=== PATIENT | male | born 1985 | race Caucasian/White ===

== ENCOUNTER 2020-11-12 17:21 | Emergency (ER) | payer SELFPAY ==
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
[2020-11-12] MEDS ORDERED: Sodium Chloride 0.9% 10 ML Syringe FLUSH PRN (17:49)
[2020-11-12 18:25] LABS: ANION GAP 11.6 mEq/L (7-13); CHLORIDE,CL 107 mmol/L (98-107); SODIUM,NA 144 mmol/L (136-145)
[2020-11-12] MEDS ORDERED: Iopamidol 612 MG/ML 100 ML Bottle IVPUSH ONE (18:32)
--- NOTE | 2020-11-12 19:48 | CT ---
PROCEDURE INFORMATION: Exam: CT Abdomen And Pelvis With Contrast Exam date and time: 11/12/2020 7:09 PM Age: 35 years old Clinical indication: Other: Suspicious for appendicitis; Additional info: Rlq pain with rebound tenderness TECHNIQUE: Imaging protocol: Computed tomography of the abdomen and pelvis with contrast. Radiation optimization: All CT scans at this facility use at least one of these dose optimization techniques: automated exposure control; mA and/or kV adjustment per patient size (includes targeted exams where dose is matched to clinical indication); or iterative reconstruction. Contrast material: [id number]; Contrast volume: 75 ml; Contrast route: INTRAVENOUS (IV); COMPARISON: No relevant prior studies available. FINDINGS: Liver: The liver is normal in architecture, without suspicious abnormality. Gallbladder and bile ducts: The gallbladder is surgically absent. Pancreas: The pancreatic parenchyma is normal in bulk and sharply marginated. Duct is not dilated. No calcifications, masses, or abnormal fluid collections. Spleen: Spleen is normal in size. No mass or fluid collection. Adrenal glands: There are no adrenal masses. Kidneys and ureters: Normal in parenchymal bulk. No hydronephrosis or asymmetric perinephric stranding. No solid masses. No stones. Stomach and bowel: No significant abnormalities of the stomach. There are no dilated or thickened small bowel loops. Gas and stool are seen in the colon to the rectum. No mass. Appendix: There is no evidence for appendicitis. Intraperitoneal space: No ascites. No abscess. No inflammation within the intra-abdominal fat. No pneumoperitoneum. No mass. Vasculature: No aneurysm. Lymph nodes: There are no enlarged celiac, mesenteric, periportal, extraperitoneal or inguinal lymph nodes. Urinary bladder: There is no bladder wall thickening, mass, or calculus. Reproductive: Prostate gland is normal in size. The seminal vesicles are unremarkable. Bones/joints: Age appropriate spondylosis. There are no suspicious lytic or osteosclerotic lesions. There are no vertebral compression fractures. Soft tissues: There is a fat-containing umbilical hernia. IMPRESSION: No acute intra-abdominal disease.
== END 2020-11-12 20:39 | disposition home or self-care (01) ==
LOC: DL.ED 17:21
DX: R10.31 Right lower quadrant pain (principal); Z91.018 Allergy to other foods; Z72.0 Tobacco use
CPT/HCPCS: 36415; 74177; 80053; 82150; 85025; 99283; 99284-25; Q9967

== ENCOUNTER 2020-11-25 15:54 | Emergency (ER) | payer SELFPAY ==
[2020-11-28 11:46] LABS: C.TRACHOMATIS BY TMA Negative (Negative); N.GONORRHOEAE BY TMA Negative (Negative)
== END 2020-11-25 21:20 | disposition left against medical advice (07) ==
LOC: DL.ED 15:54
DX: Z53.21 Procedure and treatment not carried out due to patient leaving prior to being seen by health care provider (principal)
CPT/HCPCS: 81001; 87491; 87591

== ENCOUNTER 2020-12-23 20:56 | Emergency (ER) | payer OTHER ==
--- NOTE | 2020-12-23 22:11 | EDM.PDOC ---
ED HPI GENERAL MEDICAL PROBLEM - General Chief Complaint: Back Pain or Injury Stated Complaint: FELL ON YOUR BACK AT WORK Time Seen by Provider: 12/23/20 22:11 Source of Information: Reports: Patient, RN, RN Notes Reviewed History Limitations: Reports: No Limitations - History of Present Illness INITIAL COMMENTS - FREE TEXT/NARRATIVE: Patient is a 35-year-old male who presents to ER with complaint of back pain. States he was at work at [employer] when he slipped on grease in the kitchen and fell twisting his back on the way down. He states this happened about 2100 tonight. Has a history of numbness down the right leg from time to time, and no more numbness or tingling than usual today. States he does have some tingling to the left leg. Denies saddle anesthesia, incontinence of bowel or bladder. Rates pain a 7/10 with no movement and and 9/10 with movement. Onset: Today, Sudden Lower Back Pain Score (Numeric/FACES): 9 - Related Data Allergies Allergy/AdvReac Type Severity Reaction Status Date / Time chocolate flavor Allergy Cannot Verified 11/25/20 16:25 Remember Home Meds: Home Meds . [No Known Home Meds] 11/12/20 [History] Past Medical History HEENT History: Reports: None Cardiovascular History: Reports: None Respiratory History: Reports: None Gastrointestinal History: Reports: GERD Musculoskeletal History: Reports: None Neurological History: Reports: Seizure Psychiatric History: Reports: ADHD, Addiction, Bipolar, Depression, Schizophrenia Endocrine/Metabolic History: Reports: None Hematologic History: Reports: None Immunologic History: Reports: None Oncologic (Cancer) History: Reports: None Dermatologic History: Reports: None - Infectious Disease History Infectious Disease History: Reports: None - Past Surgical History Head Surgeries/Procedures: Reports: None Social & Family History - Family History Family Medical History: No Pertinent Family History - Tobacco Use Tobacco Use Status *Q: Current Every Day Tobacco User Years of Tobacco use: 1 Packs/Tins Daily: 0.2 - Caffeine Use Caffeine Use: Reports: Energy Drinks - Recreational Drug Use Recreational Drug Use: No - Living Situation & Occupation Living situation: Reports: Single Occupation: Other ED ROS GENERAL - Review of Systems Review Of Systems: Comprehensive ROS is negative, except as noted in HPI. ED EXAM,LOWER BACK PAIN/INJURY - Physical Exam Exam: See Below Exam Limited By: No Limitations General Appearance: Alert, WD/WN, No Apparent Distress Eye Exam: Bilateral Eye: EOMI, Normal Inspection Ears: Normal External Exam, Hearing Grossly Normal Nose: Normal Inspection Throat/Mouth: Normal Inspection, Normal Voice, No Airway Compromise Head: Atraumatic, Normocephalic Neck: Normal Inspection, Supple, Non-Tender, Full Range of Motion Respiratory/Chest: No Respiratory Distress, Lungs Clear, Normal Breath Sounds, No Accessory Muscle Use, Chest Non-Tender Cardiovascular: Normal Peripheral Pulses, Regular Rate, Rhythm, No Edema, No Gallop, No JVD, No Murmur, No Rub GI/Abdominal: Normal Bowel Sounds, Soft, Non-Tender (Male) Exam: Deferred Rectal (Males) Exam: Deferred Back Exam: Normal Inspection, Decreased Range of Motion, Muscle Spasm Extremities: Normal Inspection, Normal Range of Motion, Non-Tender, No Pedal Edema, Normal Capillary Refill Neurological: Alert, Normal Mood/Affect, No Motor/Sensory Deficits, Oriented x 3 Psychiatric: Normal Affect, Normal Mood Skin Exam: Warm, Dry, Intact, Normal Color, No Rash Lymphatic: No Adenopathy Course - Vital Signs Last Recorded V/S: Last Vital Signs Temp 98.3 F 12/23/20 21:49 Pulse 84 12/23/20 21:49 Resp 18 12/23/20 21:49 BP 107/70 12/23/20 21:49 Pulse Ox 98 12/23/20 21:49 - Orders/Labs/Meds Meds: Medications Discontinued Medications Generic Name Dose Route Start Last Admin Trade Name Breana PRN Reason Stop Dose Admin Dexamethasone 8 mg 12/23/20 22:26 12/23/20 23:03 Dexamethasone 4 Mg/Ml Sdv IM 12/23/20 22:27 8 mg ONETIME ONE Administration Ketorolac Tromethamine 30 mg 12/23/20 22:26 12/23/20 23:04 Ketorolac 30 Mg/Ml Sdv IM 12/23/20 22:27 30 mg ONETIME ONE Administration Orphenadrine Citrate 60 mg 12/23/20 22:26 12/23/20 23:04 Orphenadrine 60 Mg/2 Ml Inj IM 12/23/20 22:27 60 mg ONETIME ONE Administration - Radiology Interpretation Free Text/Narrative:: Lumbar Spine xray: PROCEDURE INFORMATION: Exam: XR Lumbosacral Spine Exam date and time: 12/23/2020 11:17 PM Age: 35 years old Clinical indication: Other: Pain; Additional info: Slipped on grease, twisted and fell, low back pain TECHNIQUE: Imaging protocol: XR of the lumbosacral spine. Views: 2 or 3 views. COMPARISON: CT Abdomen Pelvis w Cont 11/12/2020 7:09 PM FINDINGS: Bones/joints: Normal. No acute fracture. Normal alignment. Soft tissues: Unremarkable. IMPRESSION: No acute findings. Thank you for allowing us to participate in the care of your patient. Dictated and Authenticated by: Randi Hammonds MD 12/24/2020 12:43 AM Central Time ([place] & [place]) See rad report - Re-Assessments/Exams Free Text/Narrative Re-Assessment/Exam: 12/23/20 23:56 Patient does live in a custodial house, wears an ankle bracelet. States he needs to be back to the custodial house and to plug in his ankle bracelet or his botanical technical officer will be upset with him. Explained to the patient that I was not seeing anything on the x-rays, but we would be waiting for some time for the official read from radiology. Did take down the patient's cell phone number told him we would call him if there was anything abnormal on the x-rays. Encouraged to take medications as prescribed. May alternate heat and ice. 12/23/20 23:58 Does state improvement in pain since medication injections. Departure - Departure Time of Disposition: 23:57 Disposition: Home, Self-Care 01 Condition: Good Clinical Impression: Lumbar radiculopathy Low back pain Qualifiers: Chronicity: acute Back pain laterality: bilateral Sciatica presence: with sciatica Sciatica laterality: bilateral sciatica Qualified Code(s): M54.42 - Lumbago with sciatica, left side - Discharge Information *PRESCRIPTION DRUG MONITORING PROGRAM REVIEWED*: No *COPY OF PRESCRIPTION DRUG MONITORING REPORT IN PATIENT SUZY: No Instructions: Radicular Pain, Back Injury Prevention, [id number], Muscle Strain, [id number] Referrals: PCP,None [Primary Care Provider] - Forms: ED Department Discharge Additional Instructions: Alternate heat and ice to the back Rest Return to the ER with any worsening of problems Follow-up with your primary care provider in the clinic May follow-up with physical therapy at the location of your preference Sepsis Event Note (ED) - Evaluation Sepsis Screening Result: No Definite Risk
[2020-12-23] MEDS ORDERED: Dexamethasone 4 MG/ML SDV IM ONE (22:26)
[2020-12-23] MEDS ORDERED: Orphenadrine 60 MG/2 ML Inj IM ONE (22:26)
[2020-12-23] MEDS ORDERED: Ketorolac 30 MG/ML SDV IM ONE (22:26)
--- NOTE | 2020-12-24 00:43 | CR ---
PROCEDURE INFORMATION: Exam: XR Lumbosacral Spine Exam date and time: 12/23/2020 11:17 PM Age: 35 years old Clinical indication: Other: Pain; Additional info: Slipped on grease, twisted and fell, low back pain TECHNIQUE: Imaging protocol: XR of the lumbosacral spine. Views: 2 or 3 views. COMPARISON: CT Abdomen Pelvis w Cont 11/12/2020 7:09 PM FINDINGS: Bones/joints: Normal. No acute fracture. Normal alignment. Soft tissues: Unremarkable. IMPRESSION: No acute findings.
== END 2020-12-24 00:05 | disposition home or self-care (01) ==
LOC: DL.ED 20:56
DX: M54.16 Radiculopathy, lumbar region (principal); M54.42 Lumbago with sciatica, left side; Z72.0 Tobacco use; Z91.018 Allergy to other foods; W01.0XXA Fall on same level from slipping, tripping and stumbling without subsequent striking against object, initial encounter; X50.1XXA Overexertion from prolonged static or awkward postures, initial encounter
CPT/HCPCS: 72100; 96372; 99283; 99283-25; J1100; J1885; J2360

== ENCOUNTER 2021-01-07 01:51 | Emergency (ER) | payer SELFPAY ==
[2021-01-07] MEDS ORDERED: Ketorolac 30 MG/ML SDV IM ONE (02:15)
[2021-01-07] MEDS ORDERED: Orphenadrine 60 MG/2 ML Inj IM ONE (02:15)
--- NOTE | 2021-01-07 02:42 | EDM.PDOC ---
ED HPI GENERAL MEDICAL PROBLEM - General Chief Complaint: Back Pain or Injury Stated Complaint: BACK SPASMS, EXTREME PAIN Time Seen by Provider: 01/07/21 02:15 Source of Information: Reports: Patient, RN, RN Notes Reviewed History Limitations: Reports: No Limitations - History of Present Illness INITIAL COMMENTS - FREE TEXT/NARRATIVE: Patient is a 35-year-old male who presents to ER with complaint of midthoracic back pain. On December 252020, patient slipped on grease and fell on his back at his workplace. Patient was evaluated in the ER at that time. Lumbar spine x-rays were completed as the pain was in the low back. Patient states he did follow-up with his primary care provider who prescribed more cyclobenzaprine as well as dexamethasone. Patient is off of work currently for 3 weeks and is to be reevaluated in the clinic on January 23. Patient states he did make an appointment for next week with his primary care provider due to the low back pain "creeping" up the spine. He states today he was doing just fine when he bent over to pick something up from a picnic table and his back began to spasm. Complains of pain in the mid/thoracic portion of the back. He states it did release for short period of time and began to spasm again. Patient states last dose of cyclobenzaprine was at noon today. States he also took his dexamethasone today at noon. Onset: Today, Sudden Back Pain Score (Numeric/FACES): 10 - Related Data Allergies Allergy/AdvReac Type Severity Reaction Status Date / Time chocolate flavor Allergy Cannot Verified 11/25/20 16:25 Remember Home Meds: Home Meds Cyclobenzaprine [Flexeril] 10 mg PO TID 01/07/21 [History] dexAMETHasone [Dexamethasone] 2 mg PO BID 01/07/21 [History] Past Medical History HEENT History: Reports: None Cardiovascular History: Reports: None Respiratory History: Reports: None Gastrointestinal History: Reports: GERD Musculoskeletal History: Reports: None Neurological History: Reports: Seizure Psychiatric History: Reports: ADHD, Addiction, Bipolar, Depression, Schizophrenia Endocrine/Metabolic History: Reports: None Hematologic History: Reports: None Immunologic History: Reports: None Oncologic (Cancer) History: Reports: None Dermatologic History: Reports: None - Infectious Disease History Infectious Disease History: Reports: None - Past Surgical History Head Surgeries/Procedures: Reports: None GI Surgical History: Reports: Cholecystectomy, EGD Social & Family History - Family History Family Medical History: No Pertinent Family History - Tobacco Use Tobacco Use Status *Q: Current Every Day Tobacco User Years of Tobacco use: 15 Packs/Tins Daily: 0.3 Used Tobacco, but Quit: No Second Hand Smoke Exposure: Yes - Caffeine Use Caffeine Use: Reports: Coffee, Energy Drinks, Soda - Recreational Drug Use Recreational Drug Use: No - Living Situation & Occupation Living situation: Reports: Single Occupation: Other ED ROS GENERAL - Review of Systems Review Of Systems: Comprehensive ROS is negative, except as noted in HPI. ED EXAM, UPPER BACK/NECK PAIN - Physical Exam Exam: See Below Exam Limited By: No Limitations General Appearance: Alert, WD/WN, Moderate Distress Eye Exam: Bilateral Eye: EOMI, Normal Inspection Ears Exam: Normal External Exam, Hearing Grossly Normal Nose Exam: Normal Inspection Throat/Mouth Exam: Normal Inspection, Normal Voice, No Airway Compromise Head Exam: Atraumatic, Normocephalic Neck Exam: Non-Tender, Full Range of Motion, Normal Alignment, Normal Inspection Nexus Criteria: No: Posterior, Midline Cervical Tenderness, Evidence of Intoxication, Altered Level of Consciousness, Focal Neurological Deficit, Painful Distraction Injuries Cardiovascular/Respiratory: Regular Rate, Rhythm, No M/R/G, Normal Peripheral Pulses, No JVD, Normal Breath Sounds, No Respiratory Distress GI/Abdominal: Normal Bowel Sounds, Soft, Non-Tender (Male) Exam: Deferred Rectal (Males) Exam: Deferred Back Exam: Muscle Spasm, Vertebral Tenderness (Thoracic) Extremities: Normal Inspection, Non-Tender, No Pedal Edema, Normal Capillary Refill, Limited Range of Motion (Lower extremities bilaterally) Neurologic: No Motor/Sensory Deficits, Alert, Normal Mood/Affect, Oriented x 3 Psychiatric: Normal Affect, Normal Mood, Anxious Skin Exam: Normal Color, Warm/Dry Lymphatic: No Adenopathy Course - Vital Signs Last Recorded V/S: Last Vital Signs Temp 97.0 F 01/07/21 02:09 Pulse 105 H 01/07/21 02:09 Resp 18 01/07/21 02:09 BP 125/72 01/07/21 02:09 Pulse Ox 97 01/07/21 02:09 - Orders/Labs/Meds Meds: Medications Discontinued Medications Generic Name Dose Route Start Last Admin Trade Name Freq PRN Reason Stop Dose Admin Ketorolac Tromethamine 30 mg 01/07/21 02:15 01/07/21 02:39 Ketorolac 30 Mg/Ml Sdv IM 01/07/21 02:16 30 mg ONETIME ONE Administration Orphenadrine Citrate 60 mg 01/07/21 02:15 01/07/21 02:41 Orphenadrine 60 Mg/2 Ml Inj IM 01/07/21 02:16 60 mg ONETIME ONE Administration - Radiology Interpretation Free Text/Narrative:: Rib x-ray: PROCEDURE INFORMATION: Exam: XR Right Ribs with PA Chest Exam date and time: 01/07/2021 3:05 AM Age: 35 years old Clinical indication: Other: Fell in December, now post. Rib pain--no new injury; Ad ditional info: Mid back pain, TECHNIQUE: Imaging protocol: XR Right ribs with PA chest. Views: 3 views COMPARISON: CR Thoracolumbar 2V 01/07/2021 3:01 AM FINDINGS: Lungs: Unremarkable. No consolidation. Pleural spaces: Unremarkable. No pleural effusion. No pneumothorax. Heart/Mediastinum: Unremarkable. No cardiomegaly. Bones/joints: Unremarkable. Organs: There has been a cholecystectomy. IMPRESSION: No acute disease. Thank you for allowing us to participate in the care of your patient. Dictated and Authenticated by: Noah Newman DO 01/07/2021 3:46 AM Central Time ([place] & [place]) Thoracolumbar x-ray: PROCEDURE INFORMATION: Exam: XR Thoracolumbar Spine Exam date and time: 01/07/2021 3:01 AM Age: 35 years old Clinical indication: Other: Fall mid december--now pain "creeping up back"; Additional info: Mid back pain, TECHNIQUE: Imaging protocol: XR of the thoracolumbar spine. Views: 2 views. COMPARISON: CR Lumbar Spine 2 or 3V 12/23/2020 11:17 PM FINDINGS: Bones/joints: There is normal vertebral body alignment. There are normal vertebral body heights. Disc spaces are symmetric and maintained. The pedicles are intact. No fracture. Soft tissues: Unremarkable. Intraperitoneal space: There has been a cholecystectomy. IMPRESSION: No fracture. Thank you for allowing us to participate in the care of your patient. Dictated and Authenticated by: Noah Newman DO 01/07/2021 3:45 AM Central Time ([place] & [place]) See radiologist report - Re-Assessments/Exams Free Text/Narrative Re-Assessment/Exam: 01/07/21 03:53 Patient states pain improved at this time. States spasms come and go. Patient does state he has an appointment with his primary care provider on Friday. Departure - Departure Time of Disposition: 03:53 Disposition: Home, Self-Care 01 Condition: Good Clinical Impression: Muscle spasm - Discharge Information *PRESCRIPTION DRUG MONITORING PROGRAM REVIEWED*: No *COPY OF PRESCRIPTION DRUG MONITORING REPORT IN PATIENT SUZY: No Instructions: Muscle Cramps and Spasms, [id number], Muscle Strain, Easy-to- Read, Back Injury Prevention, [id number] Forms: ED Department Discharge Additional Instructions: Continue taking your muscle relaxants as prescribed May use Tylenol and/or ibuprofen as directed for pain Follow-up with your primary care provider next week Rest Use a heating pad on the back as tolerated Sepsis Event Note (ED) - Evaluation Sepsis Screening Result: No Definite Risk - Focused Exam Vital Signs: Vital Signs Temp Pulse Resp BP Pulse Ox 01/07/21 02:09 97.0 F 105 H 18 125/72 97
--- NOTE | 2021-01-07 03:46 | CR ---
PROCEDURE INFORMATION: Exam: XR Thoracolumbar Spine Exam date and time: 01/07/2021 3:01 AM Age: 35 years old Clinical indication: Other: Fall mid december--now pain "creeping up back"; Additional info: Mid back pain, TECHNIQUE: Imaging protocol: XR of the thoracolumbar spine. Views: 2 views. COMPARISON: CR Lumbar Spine 2 or 3V 12/23/2020 11:17 PM FINDINGS: Bones/joints: There is normal vertebral body alignment. There are normal vertebral body heights. Disc spaces are symmetric and maintained. The pedicles are intact. No fracture. Soft tissues: Unremarkable. Intraperitoneal space: There has been a cholecystectomy. IMPRESSION: No fracture.
--- NOTE | 2021-01-07 03:47 | CR ---
PROCEDURE INFORMATION: Exam: XR Right Ribs with PA Chest Exam date and time: 01/07/2021 3:05 AM Age: 35 years old Clinical indication: Other: Fell in December, now post. Rib pain--no new injury; Additional info: Mid back pain, TECHNIQUE: Imaging protocol: XR Right ribs with PA chest. Views: 3 views COMPARISON: CR Thoracolumbar 2V 01/07/2021 3:01 AM FINDINGS: Lungs: Unremarkable. No consolidation. Pleural spaces: Unremarkable. No pleural effusion. No pneumothorax. Heart/Mediastinum: Unremarkable. No cardiomegaly. Bones/joints: Unremarkable. Organs: There has been a cholecystectomy. IMPRESSION: No acute disease.
== END 2021-01-07 04:14 | disposition home or self-care (01) ==
LOC: DL.ED 01:51
DX: M62.838 Other muscle spasm (principal); Z72.0 Tobacco use; Z91.018 Allergy to other foods
CPT/HCPCS: 71101; 72080; 96372; 99283; J1885; J2360

== ENCOUNTER 2021-02-10 12:51 | Emergency (ER) | payer MEDICAID, OTHER ==
[2021-02-10] MEDS ORDERED: Ketorolac 30 MG/ML SDV IM ONE (13:58)
[2021-02-10] MEDS ORDERED: Orphenadrine 60 MG/2 ML Inj IM ONE (13:58)
--- NOTE | 2021-02-10 14:01 | EDM.PDOC ---
Scribed by Shadia Kan 02/10/21 1401 for Jovanny Beltran MD ED HPI GENERAL MEDICAL PROBLEM - General Chief Complaint: Back Pain or Injury Stated Complaint: BACK SPASM Time Seen by Provider: 02/10/21 13:56 Source of Information: Reports: Patient, RN, RN Notes Reviewed History Limitations: Reports: No Limitations - History of Present Illness INITIAL COMMENTS - FREE TEXT/NARRATIVE: Patient presents to ED by POV stating that he was injured at work on December 23, slipped and fell. He has been having back spasms since. Patient states went to life something this AM, went to the floor from the pain and wasn't able to get up for a while. He states has medication for this, is not able to take when needs. He has to take the meds when scheduled, is scheduled 4 times a day. Patient states he was sleeping at 1100 when med due, missed it and could not take at 1230, rates his pain 5/[address] ([facility]) Onset: Gradual Duration: Getting Worse Location: Reports: Back Quality: Reports: Ache Severity: Severe Improves with: Reports: None Worsens with: Reports: None Associated Symptoms: Reports: No Other Symptoms Back Pain Score (Numeric/FACES): 5 - Related Data Allergies Allergy/AdvReac Type Severity Reaction Status Date / Time chocolate flavor Allergy Cannot Verified 02/10/21 13:28 Remember Past Medical History HEENT History: Reports: None Cardiovascular History: Reports: None Respiratory History: Reports: None Gastrointestinal History: Reports: GERD Genitourinary History: Reports: None Musculoskeletal History: Reports: None Neurological History: Reports: Seizure Psychiatric History: Reports: ADHD, Addiction, Bipolar, Depression, S chizophrenia Endocrine/Metabolic History: Reports: None Hematologic History: Reports: None Immunologic History: Reports: None Oncologic (Cancer) History: Reports: None Dermatologic History: Reports: None - Infectious Disease History Infectious Disease History: Reports: None - Past Surgical History Head Surgeries/Procedures: Reports: None GI Surgical History: Reports: Cholecystectomy, EGD Social & Family History - Family History Family Medical History: No Pertinent Family History - Tobacco Use Tobacco Use Status *Q: Current Every Day Tobacco User Years of Tobacco use: 19 Packs/Tins Daily: 0.5 Second Hand Smoke Exposure: No - Caffeine Use Caffeine Use: Reports: Coffee - Recreational Drug Use Recreational Drug Use: No - Living Situation & Occupation Living situation: Reports: Single Occupation: Other ED ROS GENERAL - Review of Systems Review Of Systems: Comprehensive ROS is negative, except as noted in HPI. ED EXAM,LOWER BACK PAIN/INJURY - Physical Exam Exam: See Below Exam Limited By: No Limitations General Appearance: Alert, WD/WN, No Apparent Distress Throat/Mouth: Normal Voice, No Airway Compromise Head: Atraumatic, Normocephalic Neck: Normal Inspection, Non-Tender, Full Range of Motion Respiratory/Chest: No Respiratory Distress, Lungs Clear Cardiovascular: Normal Peripheral Pulses GI/Abdominal: Normal Bowel Sounds, Soft, Non-Tender Back Exam: Decreased Range of Motion (Lumbar due to pain), Muscle Spasm (Lumbar region, Rt>Left), Paraspinal Tenderness (Lumbar). No: Vertebral Tenderness Extremities: Normal Inspection, Normal Range of Motion, Non-Tender, No Pedal Edema, Normal Capillary Refill Neurological: Alert, Normal Dorsiflexion, Normal Plantar Flexion, Normal Gait, No Motor/Sensory Deficits, Oriented x 3 Psychiatric: Normal Affect, Normal Mood Skin Exam: Warm, Dry, Intact, Normal Color, No Rash Course - Vital Signs Last Recorded V/S: Last Vital Signs Temp 96.8 F L 02/10/21 13:21 Pulse 92 02/10/21 13:21 Resp 16 02/10/21 13:21 BP 105/72 02/10/21 13:21 Pulse Ox 97 02/10/21 13:21 - Orders/Labs/Meds Orders: Active Orders 24 hr Category Date Time Status Ketorolac [Toradol] Med 02/10/21 13:58 Once 60 mg IM ONETIME ONE Orphenadrine [Norflex] Med 02/10/21 13:58 Once 60 mg IM ONETIME ONE Departure - Departure Time of Disposition: 14:00 Disposition: Home, Self-Care 01 Condition: Good Clinical Impression: Lumbar paraspinal muscle spasm - Discharge Information *PRESCRIPTION DRUG MONITORING PROGRAM REVIEWED*: Not Applicable *COPY OF PRESCRIPTION DRUG MONITORING REPORT IN PATIENT SUZY: Not Applicable Instructions: Muscle Cramps and Spasms, [id number], Chronic Back Pain Forms: ED Department Discharge Additional Instructions: Continue Methocarbamol as prescribed. Follow up in clinic as needed. Sepsis Event Note (ED) - Evaluation Sepsis Screening Result: No Definite Risk - Focused Exam Vital Signs: Vital Signs Temp Pulse Resp BP Pulse Ox 02/10/21 13:21 96.8 F L 92 16 105/72 97 - My Orders Last 24 Hours: My Active Orders 02/10/21 13:58 Ketorolac [Toradol] 60 mg IM ONETIME ONE Orphenadrine [Norflex] 60 mg IM ONETIME ONE - Assessment/Plan Last 24 Hours: My Active Orders 02/10/21 13:58 Ketorolac [Toradol] 60 mg IM ONETIME ONE Orphenadrine [Norflex] 60 mg IM ONETIME ONE I have read and agree with the documentation that has been completed regarding this visit. By signing this record, I attest that the documentation was completed in my physical presence and is an accurate record of the encounter.
== END 2021-02-10 15:04 | disposition home or self-care (01) ==
LOC: DL.ED 12:51
DX: M62.830 Muscle spasm of back (principal); Z91.018 Allergy to other foods; Z72.0 Tobacco use
CPT/HCPCS: 96372; 99283

== ENCOUNTER 2021-03-04 23:02 | Emergency (ER) | payer MEDICAID ==
[2021-03-04] MEDS ORDERED: predniSONE 20 MG Tab PO ONE (23:54)
--- NOTE | 2021-03-05 | EDM.PDOC ---
ED HPI GENERAL MEDICAL PROBLEM - General Chief Complaint: Respiratory Problem Stated Complaint: COUGHING,SWEATING,DIARRHEA Time Seen by Provider: 03/04/21 23:45 Source of Information: Reports: Patient, RN Notes Reviewed - History of Present Illness INITIAL COMMENTS - FREE TEXT/NARRATIVE: Pt is here for cough and diarrhea for the last few days. 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 He had a COVID test 2 days ago which was negative. He notes the cough is the worst symptom and makes his headache worse. No fevers or chills. He notes his entire body aches. He has not tried anything for his symptoms, but notes being outside makes his cough better. - Related Data Allergies Allergy/AdvReac Type Severity Reaction Status Date / Time chocolate flavor Allergy Cannot Verified 02/10/21 13:28 Remember Past Medical History - Past Health History Medical/Surgical History: Denies Medical/Surgical History HEENT History: Reports: None Cardiovascular History: Reports: None Respiratory History: Reports: None Gastrointestinal History: Reports: GERD Genitourinary History: Reports: None Musculoskeletal History: Reports: None Neurological History: Reports: Seizure Psychiatric History: Reports: ADHD, Addiction, Bipolar, Depression, Schizoph mckenna Endocrine/Metabolic History: Reports: None Hematologic History: Reports: None Immunologic History: Reports: None Oncologic (Cancer) History: Reports: None Dermatologic History: Reports: None - Infectious Disease History Infectious Disease History: Reports: None - Past Surgical History Head Surgeries/Procedures: Reports: None GI Surgical History: Reports: Cholecystectomy, EGD Social & Family History - Family History Family Medical History: No Pertinent Family History - Tobacco Use Tobacco Use Status *Q: Light Tobacco User Years of Tobacco use: 20 Packs/Tins Daily: 0.4 - Caffeine Use Caffeine Use: Reports: Coffee - Living Situation & Occupation Living situation: Reports: Single Occupation: Other ED ROS GENERAL - Review of Systems Review Of Systems: Comprehensive ROS is negative, except as noted in HPI. ED EXAM, GENERAL - Physical Exam Exam: See Below Exam Limited By: No Limitations General Appearance: Alert, WD/WN, No Apparent Distress Eye Exam: Bilateral Eye: Normal Inspection Throat/Mouth: Normal Inspection, Normal Voice, No Airway Compromise Head: Atraumatic, Normocephalic Neck: Supple, Non-Tender Respiratory/Chest: No Respiratory Distress, No Accessory Muscle Use, Wheezing. No: Decreased Breath Sounds, Crackles, Rales Cardiovascular: Normal Peripheral Pulses, Regular Rate, Rhythm, No Murmur GI/Abdominal: Soft, Non-Tender. No: Guarding, Rebound (Male) Exam: Deferred Rectal (Males) Exam: Deferred Back Exam: Normal Inspection, Full Range of Motion Extremities: Normal Inspection, Normal Range of Motion, No Pedal Edema Neurological: Alert, Oriented, Normal Cognition, No Motor/Sensory Deficits Psychiatric: Normal Affect, Normal Mood Skin Exam: Warm, Dry, Intact, Normal Color, No Rash Lymphatic: No Adenopathy Course - Vital Signs Last Recorded V/S: Last Vital Signs Temp 98.6 F 03/04/21 23:21 Pulse 109 H 03/04/21 23:21 Resp 20 03/04/21 23:21 BP 129/92 H 03/04/21 23:21 Pulse Ox 98 03/04/21 23:21 - Orders/Labs/Meds Orders: Active Orders 24 hr Category Date Time Status Maldonado [CORONAVIRUS COVID-19 INEZ] [MOLEC] Stat Lab 03/05/21 00:12 Ordered Meds: Medications Discontinued Medications Generic Name Dose Route Start Last Admin Trade Name Freq PRN Reason Stop Dose Admin Prednisone 20 mg 03/04/21 23:54 Prednisone 20 Mg Tab PO 03/04/21 23:55 ONETIME ONE - Re-Assessments/Exams Free Text/Narrative Re-Assessment/Exam: COVID was negative. Most likely another viral etiology for his symptoms. Discussed treatment options. Will treat with prednisone burst, first dose given here. 03/05/21 00:12 Departure - Departure Time of Disposition: 00:20 Disposition: Home, Self-Care 01 Condition: Fair Clinical Impression: Bronchitis - Discharge Information *PRESCRIPTION DRUG MONITORING PROGRAM REVIEWED*: Not Applicable *COPY OF PRESCRIPTION DRUG MONITORING REPORT IN PATIENT SUZY: Not Applicable Instructions: Acute Bronchitis, Adult, [id number] Forms: ED Department Discharge Additional Instructions: Prednisone 20 mg daily for 4 additional days Over the counter medications as needed for symptom relief Follow up with primary care provider in 5-7 days. Sepsis Event Note (ED) - Evaluation Sepsis Screening Result: No Definite Risk - Focused Exam Vital Signs: Vital Signs Temp Pulse Resp BP Pulse Ox 03/04/21 23:21 98.6 F 109 H 20 129/92 H 98 - My Orders Last 24 Hours: My Active Orders 03/05/21 00:12 Maldonado [CORONAVIRUS COVID-19 INEZ] [MOLEC] Stat - Assessment/Plan Last 24 Hours: My Active Orders 03/05/21 00:12 Maldonado [CORONAVIRUS COVID-19 INEZ] [MOLEC] Stat
== END 2021-03-05 00:22 | disposition home or self-care (01) ==
LOC: DL.ED 23:02
DX: J40 Bronchitis, not specified as acute or chronic (principal); Z91.018 Allergy to other foods; Z72.0 Tobacco use; Z20.822 Contact with and (suspected) exposure to COVID-19
CPT/HCPCS: 87635; 99284; J7512; U0002

== ENCOUNTER 2021-05-11 01:47 | Emergency (ER) | payer MEDICARE, MEDICAID ==
--- NOTE | 2021-05-11 02:08 | EDM.PDOC ---
ED HPI GENERAL MEDICAL PROBLEM - General Stated Complaint: HEAD ACHE, WATER IN LEGS, DIZZYNESS, HEART FLUTTER Time Seen by Provider: 05/11/21 02:10 Source of Information: Reports: Patient, RN History Limitations: Reports: No Limitations - History of Present Illness INITIAL COMMENTS - FREE TEXT/NARRATIVE: ED with c/o swelling lower extremeties, currently on lasix for past week. tonight pain in right leg intermittent. No SOB No chest pain or cough. No sore throat or ear pain. Generalized headache today. Admits remote hx of meth use, none in past 2 years, denied ETOH also in past 2 years. Smoker. - Related Data Allergies Allergy/AdvReac Type Severity Reaction Status Date / Time chocolate flavor Allergy Diarrhea Verified 05/11/21 02:17 Home Meds: Home Meds Furosemide [Lasix] 20 mg PO BID 05/11/21 [History] Mirtazapine [Remeron] 30 mg PO DAILY 05/11/21 [History] cloNIDine HCL [Clonidine HCl] 0.2 mg PO DAILY 05/11/21 [History] Past Medical History - Past Health History Medical/Surgical History: Denies Medical/Surgical History HEENT History: Reports: None Cardiovascular History: Reports: None Respiratory History: Reports: None Gastrointestinal History: Reports: GERD Genitourinary History: Reports: None Musculoskeletal History: Reports: None Neurological History: Reports: Seizure Psychiatric History: Reports: ADHD, Addiction, Bipolar, Depression, Schizophrenia Endocrine/Metabolic History: Reports: None Hematologic History: Reports: None Immunologic History: Reports: None Oncologic (Cancer) History: Reports: None Dermatologic History: Reports: None - Infectious Disease History Infectious Disease History: Reports: None - Past Surgical History Head Surgeries/Procedures: Reports: None GI Surgical History: Reports: Cholecystectomy, EGD Social & Family History - Family History Family Medical History: No Pertinent Family History - Caffeine Use Caffeine Use: Reports: Coffee - Living Situation & Occupation Living situation: Reports: Single Occupation: Other ED ROS GENERAL - Review of Systems Review Of Systems: Comprehensive ROS is negative, except as noted in HPI. ED EXAM, GENERAL - Physical Exam Exam: See Below Exam Limited By: No Limitations General Appearance: Alert, Anxious Eye Exam: Bilateral Eye: EOMI Ears: Normal External Exam, Hearing Grossly Normal Nose: Normal Inspection Throat/Mouth: Normal Inspection Head: Atraumatic, Normocephalic Neck: Normal Inspection Respiratory/Chest: No Respiratory Distress, Lungs Clear, Normal Breath Sounds Cardiovascular: Regular Rate, Rhythm, No Edema GI/Abdominal: Normal Bowel Sounds, Soft, Non-Tender Back Exam: Full Range of Motion Extremities: Normal Range of Motion, Pedal Edema (1+) Neurological: Alert, Oriented, Normal Cognition Psychiatric: Anxious Skin Exam: Warm, Dry, Intact, Normal Color #1 Interpretation EKG Date: 05/11/21 Time: 02:02 Rhythm: NSR [place]: Normal P-Wave: Present QRS: Normal ST-T: Normal Comparison: NA - No Prior EKG Course - Vital Signs Last Recorded V/S: Last Vital Signs Temp 99.3 F 05/11/21 02:19 Pulse 86 05/11/21 03:23 Resp 16 05/11/21 03:23 BP 115/74 05/11/21 03:23 Pulse Ox 94 L 05/11/21 03:23 - Orders/Labs/Meds Orders: Active Orders 24 hr Category Date Time Status CXR [Chest 1V Frontal] [CR] Urgent Exams 05/11/21 03:08 Taken Labs: Laboratory Tests 05/11/21 05/11/21 05/11/21 Range/Units 02:14 02:14 02:14 WBC 6.8 (5.0-10.0) 10^3/uL RBC 4.75 (4.6-6.2) 10^6/uL Hgb 14.5 (14.0-18.0) g/dL Hct 42.9 (40.0-54.0) % MCV 90.3 (80-100) fL MCH 30.5 (27.0-34.0) pg MCHC 33.8 (33.0-35.0) g/dL Plt Count 330 (150-450) 10^3/uL Neut % (Auto) 53.0 (42.2-75.2) % Lymph % (Auto) 33.0 (20.5-50.1) % [place] % (Auto) 11.5 H (2-8) % Eos % (Auto) 1.9 (1.0-3.0) % Baso % (Auto) 0.6 (0.0-1.0) % D-Dimer, Quantitative 168 (0-400) ng/mL Sodium 141 (136-145) mmol/L Potassium 4.0 (3.5-5.1) mmol/L Chloride 103 (98-107) mmol/L Carbon Dioxide 28 (21-32) mmol/L Anion Gap 14.0 H (7-13) mEq/L BUN 18 (7-18) mg/dL Creatinine 0.99 (0.70-1.30) mg/dL Est Cr Clr Drug Dosing 104.15 mL/min Estimated GFR (MDRD) > 60 BUN/Creatinine Ratio 18.2 (No establ ref range) Glucose 86 (70-99) mg/dL Calcium 9.4 (8.5-10.1) mg/dL Total Bilirubin 0.3 (0.2-1.0) mg/dL AST 32 (15-37) U/L ALT 74 H (16-63) U/L Alkaline Phosphatase 117 H (46-116) U/L Troponin I High Sens 8 (<=76) pg/mL B-Natriuretic Peptide < 5 (0-100) pg/ml Total Protein 7.9 (6.4-8.2) g/dL Albumin 4.0 (3.4-5.0) g/dL Globulin 3.9 Albumin/Globulin Ratio 1.0 TSH, Ultra Sensitive 2.55 (0.36-3.74) uIU/mL Departure - Departure Time of Disposition: 04:43 Disposition: Home, Self-Care 01 Condition: Good Clinical Impression: Peripheral edema, Anxiety about health - Discharge Information *PRESCRIPTION DRUG MONITORING PROGRAM REVIEWED*: No *COPY OF PRESCRIPTION DRUG MONITORING REPORT IN PATIENT SUZY: No Instructions: Peripheral Edema, Leg Cramps Additional Instructions: Clinic follow up on Friday for recheck Continue home medications Urgent follow up severe chest pain, difficulty breathing Sepsis Event Note (ED) - Focused Exam Vital Signs: Vital Signs Temp Pulse Resp BP Pulse Ox 05/11/21 03:23 86 16 115/74 94 L 05/11/21 02:19 99.3 F 80 20 126/76 96 - My Orders Last 24 Hours: My Active Orders 05/11/21 03:08 CXR [Chest 1V Frontal] [CR] Urgent - Assessment/Plan Last 24 Hours: My Active Orders 05/11/21 03:08 CXR [Chest 1V Frontal] [CR] Urgent
[2021-05-11 02:51] LABS: CHLORIDE,CL 103 mmol/L (98-107); SODIUM,NA 141 mmol/L (136-145)
--- NOTE | 2021-05-11 05:22 | CR ---
PROCEDURE INFORMATION: Exam: XR Chest Exam date and time: 05/11/2021 3:59 AM Age: 36 years old Clinical indication: Other: Palpitations, edema; Additional info: Palpations, edema, TECHNIQUE: Imaging protocol: XR of the chest. Views: 1 view. COMPARISON: CR Ribs 2V w Chest Rt 01/07/2021 3:05 AM FINDINGS: Lungs: Unremarkable. No consolidation. Pleural spaces: Unremarkable. No pleural effusion. No pneumothorax. Heart/Mediastinum: Unremarkable. No cardiomegaly. Bones/joints: Unremarkable. IMPRESSION: No acute findings.
== END 2021-05-11 05:00 | disposition home or self-care (01) ==
LOC: DL.ED 01:47
DX: F41.9 Anxiety disorder, unspecified (principal); R60.0 Localized edema; Z91.018 Allergy to other foods
CPT/HCPCS: 36415; 71045; 80053; 83880; 84443; 84484; 85025; 85379; 93005; 99284-25

== ENCOUNTER 2021-08-15 10:08 | Emergency (ER) | payer MEDICAID ==
[2021-08-15 11:19] LABS: CORONAVIRUS COVID-19 NAA NEGATIVE (NEGATIVE); RESPIRATORY SYNCYTIAL VIR NAA NEGATIVE (NEGATIVE)
== END 2021-08-15 11:37 | disposition left against medical advice (07) ==
LOC: DL.ED 10:08
DX: R06.02 Shortness of breath (principal); F17.290 Nicotine dependence, other tobacco product, uncomplicated; Z53.21 Procedure and treatment not carried out due to patient leaving prior to being seen by health care provider; Z20.822 Contact with and (suspected) exposure to COVID-19
CPT/HCPCS: 0241U